=== PATIENT | male | born 1955 | race Caucasian/White ===

== ENCOUNTER 2020-09-16 18:33 | Observation (INO) | payer OTHER ==
[~2020-09-16] VITALS: Ht 172.7 cm; Wt 79.4 kg
[2020-09-16 19:43] LABS: HEMOGLOBIN 16.5 gm/dl (14.0-17.5); RED BLOOD COUNT 5.16 M/UL (4.20-5.50); WHITE BLOOD COUNT 6.2 K/UL (4.5-11.0)
[2020-09-16 20:01] LABS: BUN/CREATININE RATIO 22 (0-10)
[2020-09-17 04:53] LABS: WHITE BLOOD COUNT 5.1 K/UL (4.5-11.0)
[2020-09-17 05:06] LABS: HEMOGLOBIN 14.5 gm/dl (14.0-17.5); RED BLOOD COUNT 4.56 M/UL (4.20-5.50)
[2020-09-17 05:28] LABS: BUN/CREATININE RATIO 32 (0-10)
[2020-09-17] MEDS ORDERED: MACROBID 100 M100 M1 PO (07:13)
[2020-09-17] MEDS ORDERED: ZESTRIL10 MG PO (07:13)
[2020-09-17] MEDS ORDERED: LOPRESSOR 25 MG25 MG PO (07:13)
[2020-09-17] MEDS ORDERED: XARELTO2.5 MG PO (07:14)
[2020-09-17] MEDS ORDERED: ASPIRIN EC81 MG PO (07:14)
[2020-09-17] MEDS ORDERED: VITAMIN B-125000 MCG SL (07:15)
[2020-09-17] MEDS ORDERED: VITAMIN D250 MCG PO (07:15)
[2020-09-17] MEDS ORDERED: LIPITOR40 MG PO (07:15)
[2020-09-17] MEDS ORDERED: SYNTHROID100 MCG PO (07:16)
[2020-09-17] MEDS ORDERED: CLARITIN10 MG PO (07:16)
[2020-09-17] MEDS ORDERED: DEPO-TESTO200 MG/1 M IM (07:17)
[2020-09-17] MEDS ORDERED: VICTOZA 1818 MG/3 ML SC (07:59)
[2020-09-17] MEDS ORDERED: NEURONTIN 100100 MG PO (08:38)
--- NOTE | 2020-09-17 14:06 | NUR ---
PATIENT NONCOMPLIANT WEARING TELEMETRY. HAS BEEN TOLD HE WILL BE DISCHARGED AND IS CLEARED BY CARDIOLOGY SO HE SAW NO NEED TO WEAR WHILE HE WAITED THE HOSPITALIST TO DISCHARGE HIM.
[2020-09-17] MEDS ORDERED: PROTONIX40 MG PO (15:05)
== END 2020-09-17 16:27 | disposition home or self-care (01) ==
LOC: ER1 18:33 → M/S 21:50 → CDU 21:50 → M/S 09-17 11:23
PROVIDERS: Preventive Medicine Occupational Medicine; ADMIT Internal Medicine
DX: R07.89 Other chest pain (principal); I10 Essential (primary) hypertension; E11.9 Type 2 diabetes mellitus without complications; E78.5 Hyperlipidemia, unspecified; F17.219 Nicotine dependence, cigarettes, with unspecified nicotine-induced disorders; Z83.3 Family history of diabetes mellitus; Z20.822 Contact with and (suspected) exposure to COVID-19
CPT/HCPCS: 71045; 78452; 80053; 80061; 81001; 82550; 82553; 83036; 83690; 83735; 83874; 83880; 84439; 84443; 84484; 85025; 85652; 86140; 87086; 93005; 93017; 96374; 99285; A9502; G0378; J2270; J2785; U0002

== ENCOUNTER 2021-08-14 17:10 | Emergency (ER) | payer OTHER ==
[~2021-08-14 17:10] MED LIST: ASPIRIN EC81 MG PO; CLARITIN10 MG PO; DEPO-TESTO200 MG/1 M IM; LIPITOR40 MG PO; LOPRESSOR 25 MG25 MG PO; MACROBID 100 M100 M1 PO; NEURONTIN 100100 MG PO; PROTONIX40 MG PO; SYNTHROID100 MCG PO; VICTOZA 1818 MG/3 ML SC; VITAMIN B-125000 MCG SL; VITAMIN D250 MCG PO; XARELTO2.5 MG PO; ZESTRIL10 MG PO
== END 2021-08-14 20:23 | disposition home or self-care (01) ==
LOC: ER1 17:10
DX: S60.221A Contusion of right hand, initial encounter (principal); F17.200 Nicotine dependence, unspecified, uncomplicated; I10 Essential (primary) hypertension; E11.9 Type 2 diabetes mellitus without complications; W20.8XXA Other cause of strike by thrown, projected or falling object, initial encounter; Y92.009 Unspecified place in unspecified non-institutional (private) residence as the place of occurrence of the external cause
CPT/HCPCS: 73130; 99283